=== PATIENT | male | born 1940 | race Caucasian/White ===

== ENCOUNTER 2021-03-28 16:02 | Inpatient (IN) | payer MEDICARE ==
[2021-03-28 16:50] LABS: #Eosinphils 0.1 thou/uL (0.0-0.7); #Lymphocytes 1.7 thou/uL (1.20-3.40); #Monocytes 0.7 thou/uL (0.11-0.59); #Neutrophils 3.6 thou/uL (1.40-6.50); %Basophils 0.7 % (0.0-1.0); %Lymphocytes 27.5 % (21.0-51.0); %Monocytes 11.8 % (0.0-10.0); Hemoglobin 12.4 g/dL (14.0-18.0); Mean Corpuscular HGB CONC 33.1 g/dL (32.0-36.0); Mean Corpuscular Hemoglobin 28.6 pg (27.0-31.0); Mean Corpuscular Volume 86.5 fL (78.0-98.0); Mean Platelet Volume 7.6 fL (7.4-10.4); Platelet Count 159 thou/uL (130-400); RBC Distribution Width 12.6 % (11.5-14.5); Red Blood Cell (RBC) Count 4.33 mill/uL (4.70-6.10); White Blood Cell (WBC) Count 6.2 thou/uL (4.8-10.8)
[2021-03-28 17:52] LABS: ALT (SGPT) 15 U/L (8-55); AST (SGOT) 19 U/L (5-34); Alkaline Phosphatase 78 U/L (40-110); Anion Gap 13 mmol/L (10-20); BUN (Urea Nitrogen) 14 mg/dL (8.4-25.7); Bilirubin, Total 0.4 mg/dL (0.2-1.2); Calc. Creatinine Clearance 0 mL/min (70-130); Calcium 9.4 mg/dL (7.8-10.44); Carbon Dioxide 28 mmol/L (23-31); Chloride 92 mmol/L (98-107); Globulin 3.1 g/dL (2.4-3.5); Glucose 66 mg/dL (83-110); Potassium 3.3 mmol/L (3.5-5.1); Protein, Total 7.1 g/dL (5.8-8.1); Sodium 130 mmol/L (136-145)
[2021-03-28 20:14] LABS: Troponin I 0.014 ng/mL (< 0.028)
[2021-03-28 20:52] LABS: SARS-CoV-2 NAA Rapid Test Not Detected (NotDetected)
[2021-03-28 23:16] LABS: Troponin I 0.015 ng/mL (< 0.028)
[2021-03-28] MEDS ORDERED: Acetaminophen 325 MG TAB ONE (23:33)
[2021-03-28] MEDS ORDERED: Potassium Chloride 20 MEQ in Lactated Ringer's 1,000 ML IV SCH (23:45)
[2021-03-28] MEDS ORDERED: Dextrose 50% Abboject 50 ML SYRINGE SLOW IVP PRN (23:51)
[2021-03-28] MEDS ORDERED: Dextrose 5% in Water 1,000 ML IV PRN (23:51)
[2021-03-28] MEDS ORDERED: Senokot S 8.6-50 MG TAB PO PRN (23:51)
[2021-03-28] MEDS ORDERED: HumaLOG 300 UNITS/3 ML VIAL SC PRN (23:51)
[2021-03-28] MEDS ORDERED: Zolpidem Tartrate 5 MG TAB PO PRN (23:51)
[2021-03-28] MEDS ORDERED: hydrALAZINE 20 MG/ML VIAL SLOW IVP PRN (23:51)
[2021-03-28] MEDS ORDERED: Acetaminophen 325 MG TAB PO PRN (23:51)
[2021-03-28] MEDS ORDERED: Ondansetron PF 4 MG/2 ML Vial IVP PRN (23:51)
[2021-03-29] MEDS ORDERED: Aspirin 81 mg Enteric Coated Tablet PO SCH (00:15)
[2021-03-29] MEDS: Potassium Chloride 20 MEQ in Lactated Ringer's 1,000 ML IVPB SCH ×2 (02:13→16:53)
[2021-03-29] MEDS ORDERED: Aspirin 81 mg Enteric Coated Tablet ONE (02:24)
[2021-03-29] MEDS ORDERED: Apixaban 5 MG TAB PO SCH (09:00)
[2021-03-29 10:09] VITALS: BMI 26.4
[2021-03-29] MEDS: Aspirin 81 mg Enteric Coated Tablet PO SCH (10:26)
[2021-03-29] MEDS: Famotidine 20 MG TAB PO SCH (10:27)
[2021-03-29] MEDS ORDERED: Electrolyte Replacement Protocol 1 EACH FS SCH (13:30)
[2021-03-29] MEDS ORDERED: Amlodipine 5 MG TAB PO SCH (15:15)
[2021-03-29 15:26] LABS: #Basophils 0.1 thou/uL (0.0-0.2); #Eosinphils 0.1 thou/uL (0.0-0.7); #Lymphocytes 1.7 thou/uL (1.20-3.40); #Monocytes 0.5 thou/uL (0.11-0.59); #Neutrophils 3.2 thou/uL (1.40-6.50); %Basophils 1.2 % (0.0-1.0); %Eosinophils 2.3 % (0.0-10.0); %Lymphocytes 29.5 % (21.0-51.0); %Monocytes 9.7 % (0.0-10.0); %Neutrophils 57.3 % (42.0-75.0); Hemoglobin 12.7 g/dL (14.0-18.0); Mean Corpuscular HGB CONC 32.8 g/dL (32.0-36.0); Mean Corpuscular Hemoglobin 28.2 pg (27.0-31.0); Mean Platelet Volume 7.3 fL (7.4-10.4); Platelet Count 157 thou/uL (130-400); RBC Distribution Width 12.7 % (11.5-14.5); Red Blood Cell (RBC) Count 4.48 mill/uL (4.70-6.10); White Blood Cell (WBC) Count 5.6 thou/uL (4.8-10.8)
[2021-03-29 15:44] LABS: Anion Gap 13 mmol/L (10-20); BUN (Urea Nitrogen) 14 mg/dL (8.4-25.7); Calc. Creatinine Clearance 52 mL/min (70-130); Calcium 9.5 mg/dL (7.8-10.44); Carbon Dioxide 29 mmol/L (23-31); Chloride 92 mmol/L (98-107); Cholesterol 126 mg/dl (< 200 Desired); Glucose 96 mg/dL (83-110); HDL Cholesterol 42 mg/dL (>60 Neg Risk); LDL Cholesterol, Calculated 67 mg/dL; Magnesium 1.7 mg/dL (1.6-2.6); Potassium 3.5 mmol/L (3.5-5.1); Sodium 130 mmol/L (136-145); Triglycerides 85 mg/dL (Less than 150)
[2021-03-29 15:56] LABS: Bacteria/HPF None Seen HPF (None Seen); Bilirubin Negative (Negative); Blood, Urine Negative (Negative); Clarity Clear (Clear); Glucose, Urine (Dipstick) Normal (Negative); Ketone, Urine Negative (Negative); Leukocyte Negative Leu/uL (Negative); Nitrite Negative (Negative); Protein, Urine (Dipstick) Negative (Neg-Trace); RBC/HPF 0-3 HPF (0-3); Specific Gravity, Urine 1.009 (1.002-1.036); Squamous Epithelial None Seen HPF (0-3); Urobilinogen Normal mg/dL (Less than 2); WBC/HPF 0-3 HPF (0-3); pH, Urine 5.5 (5.0-9.0)
[2021-03-29] MEDS ORDERED: Magnesium 2 GM/50 ML 2 GM in Premix Bag 1 BAG IVPB SCH (20:00)
[2021-03-29] MEDS ORDERED: Potassium Chloride 20 MEQ TAB PO SCH (20:00)
[2021-03-29] MEDS: Enoxaparin Sodium 80 MG/0.8 ML SYRINGE SC SCH (23:43)
[2021-03-29] MEDS: Atorvastatin Calcium 40 MG TAB PO SCH (23:43)
[2021-03-30 06:51] LABS: Albumin 3.7 g/dL (3.4-4.8); Anion Gap 13 mmol/L (10-20); BUN (Urea Nitrogen) 13 mg/dL (8.4-25.7); BUN/Creatinine Ratio 10.83; Calc. Creatinine Clearance 54 mL/min (70-130); Carbon Dioxide 28 mmol/L (23-31); Chloride 96 mmol/L (98-107); Glucose 99 mg/dL (83-110); Phosphorus 3.1 mg/dL (2.3-4.7); Potassium 3.9 mmol/L (3.5-5.1); Sodium 133 mmol/L (136-145)
[2021-03-30] MEDS: Potassium Chloride 20 MEQ in Lactated Ringer's 1,000 ML IVPB SCH (09:42)
[2021-03-30] MEDS: Enoxaparin Sodium 80 MG/0.8 ML SYRINGE SC SCH ×2 (10:12→21:40)
[2021-03-30] MEDS: Amlodipine 5 MG TAB PO SCH (10:13)
[2021-03-30] MEDS: Famotidine 20 MG TAB PO SCH (10:13)
[2021-03-30] MEDS: Aspirin 81 mg Enteric Coated Tablet PO SCH (10:13)
[2021-03-30 13:18] LABS: Bacteria/HPF None Seen HPF (None Seen); Bilirubin Negative (Negative); Blood, Urine Negative (Negative); Clarity Clear (Clear); Glucose, Urine (Dipstick) Normal (Negative); Ketone, Urine Negative (Negative); Leukocyte Negative Leu/uL (Negative); Nitrite Negative (Negative); Protein, Urine (Dipstick) Negative (Neg-Trace); RBC/HPF 0-3 HPF (0-3); Specific Gravity, Urine 1.013 (1.002-1.036); Squamous Epithelial None Seen HPF (0-3); Urobilinogen Normal mg/dL (Less than 2); WBC/HPF None Seen HPF (0-3); pH, Urine 7.5 (5.0-9.0)
[2021-03-30 13:19] LABS: Urine Culture Reflex No No
[2021-03-30 13:50] LABS: Creatinine, Urine 82.54 mg/dL (63-166); Protein, Urine Random Quant Less than 10 mg/dL (1-14); Sodium, Urine 47 mmol/L (Not Available); Urea Nitrogen, Random Urine 429 mg/dl
[2021-03-30] MEDS: Dronedarone HCl 400 MG TAB PO SCH (15:47)
[2021-03-30 15:48] LABS: Syphilis Antibody Nonreactive (Nonreactive); Syphilis Antibody Index 0.08 S/CO (<1.00 Non-Reactive)
[2021-03-30] MEDS: Atorvastatin Calcium 40 MG TAB PO SCH (21:40)
[2021-03-30] MEDS: Doxazosin Mesylate 4 MG TAB PO SCH (21:40)
[2021-03-31 07:51] LABS: Anion Gap 13 mmol/L (10-20); BUN (Urea Nitrogen) 14 mg/dL (8.4-25.7); Calc. Creatinine Clearance 47 mL/min (70-130); Calcium 9.1 mg/dL (7.8-10.44); Carbon Dioxide 28 mmol/L (23-31); Chloride 96 mmol/L (98-107); Glucose 103 mg/dL (83-110); Potassium 3.9 mmol/L (3.5-5.1); Sodium 133 mmol/L (136-145)
[2021-03-31] MEDS ORDERED: Clopidogrel Bisulfate 75 MG TAB PO SCH (09:00)
[2021-03-31] MEDS: Dronedarone HCl 400 MG TAB PO SCH ×2 (09:59→17:08)
[2021-03-31] MEDS: Amlodipine 5 MG TAB PO SCH (10:00)
[2021-03-31] MEDS: Aspirin 81 mg Enteric Coated Tablet PO SCH (10:00)
[2021-03-31] MEDS: Famotidine 20 MG TAB PO SCH (10:00)
[2021-03-31] MEDS: Enoxaparin Sodium 80 MG/0.8 ML SYRINGE SC SCH (10:00)
[2021-03-31 14:39] LABS: ANA Symphony (Qualitative) Negative (Negative); ANA Symphony (Quantitative) 0.2 Ratio (< 0.7 Negative); dsDNA IgG Antibody 1.1 IU/mL (<10 Negative)
[2021-03-31] MEDS: Doxazosin Mesylate 4 MG TAB PO SCH (20:55)
[2021-03-31] MEDS: Atorvastatin Calcium 40 MG TAB PO SCH (20:55)
[2021-04-01] MEDS ORDERED: ceFAZolin 2 GM/Dextrose 50 ML 2 GM in Premix Bag 1 BAG IVPB SCH (05:45)
[2021-04-01] MEDS ORDERED: Sodium Chloride 0.9% 1,000 ML IV SCH (06:00)
[2021-04-01 07:31] LABS: Anion Gap 16 mmol/L (10-20); BUN (Urea Nitrogen) 14 mg/dL (8.4-25.7); Calc. Creatinine Clearance 51 mL/min (70-130); Carbon Dioxide 24 mmol/L (23-31); Chloride 97 mmol/L (98-107); Glucose 105 mg/dL (83-110); Magnesium 1.8 mg/dL (1.6-2.6); Potassium 3.7 mmol/L (3.5-5.1); Sodium 133 mmol/L (136-145)
[2021-04-01] MEDS ORDERED: Magnesium 2 GM/50 ML 2 GM in Premix Bag 1 BAG IVPB SCH (08:00)
[2021-04-01] MEDS ORDERED: ceFAZolin 2 GM/DEX 5% 100 ML BAG ONE (08:06)
[2021-04-01] MEDS ORDERED: CEFAZOLIN 1 GM VIAL ONE (08:06)
[2021-04-01] MEDS ORDERED: Gentamicin 80 MG/2 ML VIAL ONE (08:06)
[2021-04-01] MEDS: Dronedarone HCl 400 MG TAB PO SCH ×2 (08:20→16:02)
[2021-04-01] MEDS: Famotidine 20 MG TAB PO SCH (08:22)
[2021-04-01] MEDS: Aspirin 81 mg Enteric Coated Tablet PO SCH (08:22)
[2021-04-01] MEDS ORDERED: Midazolam HCl 2 mg/2 ml Vial ONE (09:16)
[2021-04-01] MEDS ORDERED: Fentanyl 100 MCG/2 ML VIAL ONE (09:16)
[2021-04-01] MEDS ORDERED: Lidocaine 1% (PF) 30 ML VIAL ONE ×2 (09:19→10:17)
[2021-04-01] MEDS ORDERED: Iopamidol 370 76% 50 ML VIAL FS ONE (09:25)
[2021-04-01] MEDS ORDERED: Acetaminophen/Codeine 30-300mg Tablet PO PRN (11:15)
[2021-04-01] MEDS: Acetaminophen/Codeine 30-300mg Tablet PO PRN ×2 (16:02→20:52)
[2021-04-01] MEDS: Cephalexin 250 MG CAP PO SCH ×2 (16:08→20:49)
[2021-04-01] MEDS: Mag-Al 1200 mg/1200 mg/30 ML UDCUP PO PRN (16:14)
[2021-04-01] MEDS: Morphine 4 MG/ML VIAL SLOW IVP PRN ×2 (17:40→22:58)
[2021-04-01] MEDS ORDERED: Colchicine 0.6 MG TAB PO SCH (18:30)
[2021-04-01] MEDS: Atorvastatin Calcium 40 MG TAB PO SCH (20:50)
[2021-04-01] MEDS: Doxazosin Mesylate 4 MG TAB PO SCH (20:54)
[2021-04-02] MEDS: Morphine 4 MG/ML VIAL SLOW IVP PRN ×3 (03:05→16:46)
[2021-04-02] MEDS: Cephalexin 250 MG CAP PO SCH ×3 (08:54→20:27)
[2021-04-02] MEDS: Aspirin 81 mg Enteric Coated Tablet PO SCH (08:54)
[2021-04-02] MEDS: Famotidine 20 MG TAB PO SCH (08:54)
[2021-04-02] MEDS: Colchicine 0.6 MG TAB PO SCH ×2 (08:54→20:27)
[2021-04-02] MEDS: Dronedarone HCl 400 MG TAB PO SCH ×2 (08:54→16:42)
[2021-04-02] MEDS: Mag-Al 1200 mg/1200 mg/30 ML UDCUP PO PRN (09:12)
[2021-04-02] MEDS: HYDROcodone/Acetaminophen 7.5/325 mg Tablet PO PRN (09:12)
[2021-04-02] MEDS ORDERED: Polyethylene Glycol 3350 17 GM Packet PO SCH (11:45)
[2021-04-02] MEDS ORDERED: Senokot S 8.6-50 MG TAB PO SCH (11:45)
[2021-04-02] MEDS: Senokot S 8.6-50 MG TAB PO SCH (20:27)
[2021-04-02] MEDS: Doxazosin Mesylate 4 MG TAB PO SCH (20:27)
[2021-04-02] MEDS: Atorvastatin Calcium 40 MG TAB PO SCH (20:27)
[2021-04-02] MEDS ORDERED: Bisacodyl 10 MG SUPP PR SCH (21:00)
[2021-04-03] MEDS: Morphine 4 MG/ML VIAL SLOW IVP PRN (01:36)
[2021-04-03] MEDS: HYDROcodone/Acetaminophen 7.5/325 mg Tablet PO PRN (05:11)
[2021-04-03] MEDS: Dronedarone HCl 400 MG TAB PO SCH ×2 (08:35→16:08)
[2021-04-03] MEDS: Aspirin 81 mg Enteric Coated Tablet PO SCH (08:35)
[2021-04-03] MEDS: Cephalexin 250 MG CAP PO SCH ×2 (08:35→16:08)
[2021-04-03] MEDS: Colchicine 0.6 MG TAB PO SCH (08:35)
[2021-04-03] MEDS: Famotidine 20 MG TAB PO SCH (08:35)
[2021-04-03] MEDS: Senokot S 8.6-50 MG TAB PO SCH (08:36)
[2021-04-03] MEDS ORDERED: Polyethylene Glycol 3350 17 GM Packet PO SCH (09:00)
[2021-04-03] MEDS ORDERED: Benzonatate 100 MG CAP PO PRN (13:07)
[2021-04-03] MEDS ORDERED: Hydrocortisone 1% Cream 30 GM TUBE TOP SCH (15:00)
[2021-04-03] MEDS ORDERED: Furosemide 40 MG TAB PO SCH (16:00)
[2021-04-03] MEDS: Potassium Chloride 20 MEQ TAB PO SCH ×2 (16:07→16:26)
[2021-04-03] MEDS ORDERED: Furosemide 20 MG/2 ML VIAL SLOW IVP SCH (16:15)
[2021-04-03 16:19] VITALS: BP 120/73; TEMP 99.2
[2021-04-03] MEDS ORDERED: Colchicine 0.6 MG TAB PO SCH (18:00)
[2021-04-03] MEDS ORDERED: Cephalexin 250 MG CAP PO SCH (18:00)
[2021-04-03] MEDS ORDERED: guaiFENesin ER 600 MG TAB PO SCH (21:00)
[2021-04-04] MEDS ORDERED: Senokot S 8.6-50 MG TAB PO SCH (09:00)
[2021-04-05] MEDS ORDERED: Apixaban 5 MG TAB PO SCH (09:00)
== END 2021-04-03 18:25 | disposition home or self-care (01) | DRG 243 ==
LOC: ERS 16:02 → ERHOLD 18:18 → NEURO 03-29 09:13 → OBSVTOIN 03-30 17:13
PROVIDERS: ADMIT Internal Medicine; ATTEND Internal Medicine
PROC: 0JH606Z Insertion of Pacemaker, Dual Chamber into Chest Subcutaneous Tissue and Fascia, Open Approach (ICD-10-PCS; principal; 2021-04-01)
PROC: 02H63JZ Insertion of Pacemaker Lead into Right Atrium, Percutaneous Approach (ICD-10-PCS; 2021-04-01)
PROC: 02HK3JZ Insertion of Pacemaker Lead into Right Ventricle, Percutaneous Approach (ICD-10-PCS; 2021-04-01)
DX: R00.1 Bradycardia, unspecified (principal); Z20.822 Contact with and (suspected) exposure to COVID-19; G45.9 Transient cerebral ischemic attack, unspecified; E87.1 Hypo-osmolality and hyponatremia; N17.9 Acute kidney failure, unspecified; E87.3 Alkalosis; I12.9 Hypertensive chronic kidney disease with stage 1 through stage 4 chronic kidney disease, or unspecified chronic kidney disease; E78.5 Hyperlipidemia, unspecified; I48.0 Paroxysmal atrial fibrillation; N18.30 Chronic kidney disease, stage 3 unspecified; E87.6 Hypokalemia; E11.22 Type 2 diabetes mellitus with diabetic chronic kidney disease; M10.9 Gout, unspecified; N40.0 Benign prostatic hyperplasia without lower urinary tract symptoms; I08.3 Combined rheumatic disorders of mitral, aortic and tricuspid valves; E87.8 Other disorders of electrolyte and fluid balance, not elsewhere classified; E78.00 Pure hypercholesterolemia, unspecified; T50.2X5A Adverse effect of carbonic-anhydrase inhibitors, benzothiadiazides and other diuretics, initial encounter; E86.9 Volume depletion, unspecified; E83.42 Hypomagnesemia; E11.649 Type 2 diabetes mellitus with hypoglycemia without coma; Z79.01 Long term (current) use of anticoagulants; Z82.3 Family history of stroke; Z79.899 Other long term (current) drug therapy; Z79.84 Long term (current) use of oral hypoglycemic drugs; Z79.82 Long term (current) use of aspirin; Z88.8 Allergy status to other drugs, medicaments and biological substances; Z87.891 Personal history of nicotine dependence; Z98.42 Cataract extraction status, left eye; Z98.41 Cataract extraction status, right eye
CPT/HCPCS: 33208; 36415; 36416; 70450; 70551; 71045; 71046; 76770; 80048; 80053; 80061; 80069; 81001; 82570; 83090; 83735; 83880; 84156; 84300; 84443; 84484; 84540; 85025; 86038; 86225; 86780; 93005; 93010; 93306; 93798; 93880; 95816; 95819; 95957; 96372; 96375; 99152; 99153; C1785; C1898; G0378; J0690; J1580; J1650; J1815; J2001; J2250; J2270; J2405; J3010; J3475; J3480; J7050; J7120; Q9967; U0002

== ENCOUNTER 2021-04-04 03:10 | Inpatient (IN) | payer MEDICARE, OTHER ==
[2021-04-04] MEDS ORDERED: Ondansetron ODT 8 MG TAB ONE (04:32)
[2021-04-04 04:49] LABS: Bilirubin Negative (Negative); Blood, Urine Negative (Negative); Clarity Clear (Clear); Glucose, Urine (Dipstick) Negative (Negative); Ketone, Urine Trace mg/dL (Negative); Leukocyte Negative (Negative); Nitrite Negative (Negative); Protein, Urine (Dipstick) 30 mg/dL (Neg-Trace); Specific Gravity, Urine 1.025 (1.005-1.030); Urobilinogen 0.2 mg/dL (Less than 2); pH, Urine 5.5 (5.0-9.0)
[2021-04-04 05:08] LABS: #Eosinphils 0.1 thou/uL (0.0-0.7); #Lymphocytes 0.7 thou/uL (1.20-3.40); #Monocytes 1.1 thou/uL (0.11-0.59); #Neutrophils 5.6 thou/uL (1.40-6.50); %Basophils 0.4 % (0.0-1.0); %Eosinophils 1.3 % (0.0-10.0); %Lymphocytes 9.6 % (21.0-51.0); %Monocytes 14.3 % (0.0-10.0); %Neutrophils 74.4 % (42.0-75.0); Hemoglobin 9.8 g/dL (14.0-18.0); Mean Corpuscular HGB CONC 32.8 g/dL (32.0-36.0); Mean Corpuscular Hemoglobin 28.6 pg (27.0-31.0); Mean Corpuscular Volume 87.2 fL (78.0-98.0); Mean Platelet Volume 8.1 fL (7.4-10.4); Platelet Count 122 thou/uL (130-400); RBC Distribution Width 12.7 % (11.5-14.5); Red Blood Cell (RBC) Count 3.41 mill/uL (4.70-6.10); White Blood Cell (WBC) Count 7.5 thou/uL (4.8-10.8)
[2021-04-04] MEDS ORDERED: Mag-Al 1200 mg/1200 mg/30 ML UDCUP ONE (05:08)
[2021-04-04] MEDS ORDERED: Lidocaine Viscous Sol 2% 15 ml UD Cup ONE (05:08)
[2021-04-04 05:29] LABS: ALT (SGPT) 89 U/L (8-55); AST (SGOT) 86 U/L (5-34); Albumin 3.7 g/dL (3.4-4.8); Alkaline Phosphatase 104 U/L (40-110); Anion Gap 14 mmol/L (10-20); BUN (Urea Nitrogen) 22 mg/dL (8.4-25.7); Bilirubin, Total 1.4 mg/dL (0.2-1.2); Calc. Creatinine Clearance 0 mL/min (70-130); Calcium 8.3 mg/dL (7.8-10.44); Carbon Dioxide 25 mmol/L (23-31); Chloride 88 mmol/L (98-107); Globulin 3.1 g/dL (2.4-3.5); Glucose 135 mg/dL (83-110); Lipase 49 U/L (8-78); Magnesium 2.2 mg/dL (1.6-2.6); Protein, Total 6.8 g/dL (5.8-8.1); Sodium 123 mmol/L (136-145)
[2021-04-04] MEDS ORDERED: HumaLOG 300 UNITS/3 ML VIAL SC PRN ×2 (09:50)
[2021-04-04] MEDS ORDERED: Dextrose 5% in Water 1,000 ML IV PRN (09:50)
[2021-04-04] MEDS ORDERED: Dextrose 50% Abboject 50 ML SYRINGE SLOW IVP PRN (09:50)
[2021-04-04] MEDS ORDERED: Acetaminophen 650 MG Suppository PR PRN (09:51)
[2021-04-04] MEDS ORDERED: Ondansetron ODT 4 MG TAB PO PRN (09:51)
[2021-04-04] MEDS ORDERED: Sodium Chloride 3% 100 ML IVPB SCH (10:30)
[2021-04-04 11:24] LABS: Anion Gap 15 mmol/L (10-20); BUN (Urea Nitrogen) 20 mg/dL (8.4-25.7); Calc. Creatinine Clearance 0 mL/min (70-130); Calcium 8.1 mg/dL (7.8-10.44); Carbon Dioxide 24 mmol/L (23-31); Chloride 90 mmol/L (98-107); Glucose 104 mg/dL (83-110); Phosphorus 2.5 mg/dL (2.3-4.7); Sodium 125 mmol/L (136-145)
[2021-04-04 15:05] LABS: Potassium 4.1 mmol/L (3.5-5.1)
[2021-04-04] MEDS: Dronedarone HCl 400 MG TAB PO SCH (17:26)
[2021-04-04] MEDS: Cephalexin 250 MG CAP PO SCH ×2 (17:26→20:09)
[2021-04-04 18:14] LABS: Potassium 4.1 mmol/L (3.5-5.1)
[2021-04-04] MEDS: Sodium Chloride 1 GM TAB PO SCH ×2 (19:21→20:10)
[2021-04-04 20:08] VITALS: BMI 27.2
[2021-04-04] MEDS: Saccharomyces boulardii 250 MG CAP PO SCH (20:09)
[2021-04-04] MEDS: Atorvastatin Calcium 10 MG TAB PO SCH (20:09)
[2021-04-04 22:16] LABS: Potassium 3.7 mmol/L (3.5-5.1)
[2021-04-04] MEDS: Acetaminophen 325 MG TAB PO PRN (22:36)
[2021-04-05 00:05] LABS: SARS-CoV-2 PCR by NAA Not Detected (NotDetected)
[2021-04-05 06:14] LABS: Anion Gap 12 mmol/L (10-20); BUN (Urea Nitrogen) 14 mg/dL (8.4-25.7); Calc. Creatinine Clearance 60 mL/min (70-130); Calcium 8.5 mg/dL (7.8-10.44); Carbon Dioxide 27 mmol/L (23-31); Chloride 94 mmol/L (98-107); Glucose 89 mg/dL (83-110); Magnesium 2.2 mg/dL (1.6-2.6); Potassium 3.8 mmol/L (3.5-5.1); Sodium 129 mmol/L (136-145)
[2021-04-05 06:14] LABS: Band 2 % (5-11); Hemoglobin 9.7 g/dL (14.0-18.0); Lymphocytes 14 % (21-51); MDiff Complete? YES; Mean Corpuscular HGB CONC 34.2 g/dL (32.0-36.0); Mean Corpuscular Hemoglobin 29.7 pg (27.0-31.0); Mean Corpuscular Volume 86.9 fL (78.0-98.0); Mean Platelet Volume 7.3 fL (7.4-10.4); Monocytes 11 % (0-10); Neutrophil 73 % (42-75); Platelet Count 145 thou/uL (130-400); Platelet Morphology Comment Appears Adequate; RBC Distribution Width 12.5 % (11.5-14.5); RBC Morphology Normal; Red Blood Cell (RBC) Count 3.26 mill/uL (4.70-6.10); White Blood Cell (WBC) Count 7.1 thou/uL (4.8-10.8)
[2021-04-05 06:15] LABS: ALT (SGPT) 60 U/L (8-55); AST (SGOT) 45 U/L (5-34); Albumin 3.3 g/dL (3.4-4.8); Alkaline Phosphatase 98 U/L (40-110); Bilirubin, Direct 0.6 mg/dL (0.1-0.3); Bilirubin, Total 1.1 mg/dL (0.2-1.2); Protein, Total 6.2 g/dL (5.8-8.1)
[2021-04-05] MEDS ORDERED: Saccharomyces boulardii 250 MG CAP PO SCH (09:00)
[2021-04-05] MEDS ORDERED: Metoprolol Tartrate 100 MG TAB PO SCH (09:00)
[2021-04-05] MEDS: Dronedarone HCl 400 MG TAB PO SCH ×2 (09:29→17:03)
[2021-04-05] MEDS: Aspirin Chewable 81 MG TAB PO SCH (09:29)
[2021-04-05] MEDS: Cephalexin 250 MG CAP PO SCH ×3 (09:29→20:36)
[2021-04-05] MEDS: Sodium Chloride 1 GM TAB PO SCH ×3 (09:36→20:36)
[2021-04-05] MEDS ORDERED: Lisinopril 20 MG TAB PO SCH (11:00)
[2021-04-05] MEDS: Acetaminophen 325 MG TAB PO PRN ×2 (15:10→22:27)
[2021-04-05] MEDS ORDERED: Digoxin 0.5 MG/2 ML AMP SLOW IVP SCH ×2 (18:00→23:59)
[2021-04-05] MEDS: Saccharomyces boulardii 250 MG CAP PO SCH (20:36)
[2021-04-05] MEDS: Atorvastatin Calcium 10 MG TAB PO SCH (20:37)
[2021-04-06 04:57] LABS: Band 1 % (5-11); Hemoglobin 9.6 g/dL (14.0-18.0); Hypochromia SLIGHT = 6-15 cells (100X) (0-5/hpf); Lymphocytes 25 % (21-51); MDiff Complete? YES; Mean Corpuscular HGB CONC 32.9 g/dL (32.0-36.0); Mean Corpuscular Hemoglobin 28.4 pg (27.0-31.0); Mean Corpuscular Volume 86.5 fL (78.0-98.0); Monocytes 6 % (0-10); Neutrophil 68 % (42-75); Platelet Count 175 thou/uL (130-400); Platelet Morphology Comment Appears Adequate; RBC Distribution Width 12.6 % (11.5-14.5); Red Blood Cell (RBC) Count 3.36 mill/uL (4.70-6.10); White Blood Cell (WBC) Count 6.2 thou/uL (4.8-10.8)
[2021-04-06 04:58] LABS: Anion Gap 13 mmol/L (10-20); BUN (Urea Nitrogen) 15 mg/dL (8.4-25.7); Calc. Creatinine Clearance 61 mL/min (70-130); Calcium 8.4 mg/dL (7.8-10.44); Carbon Dioxide 25 mmol/L (23-31); Chloride 95 mmol/L (98-107); Glucose 99 mg/dL (83-110); Potassium 3.8 mmol/L (3.5-5.1); Sodium 129 mmol/L (136-145)
[2021-04-06] MEDS: Cephalexin 250 MG CAP PO SCH ×2 (08:44→14:39)
[2021-04-06] MEDS: Aspirin Chewable 81 MG TAB PO SCH (08:44)
[2021-04-06] MEDS: Sodium Chloride 1 GM TAB PO SCH ×2 (08:57→14:38)
[2021-04-06] MEDS ORDERED: Digoxin 0.125 MG TAB PO SCH (09:00)
[2021-04-06] MEDS ORDERED: Lisinopril 20 MG TAB PO SCH (09:00)
[2021-04-06] MEDS: Acetaminophen 325 MG TAB PO PRN (11:27)
[2021-04-06 11:48] VITALS: BP 144/78; TEMP 100.2
== END 2021-04-06 15:04 | disposition home or self-care (01) | DRG 643 ==
LOC: ERS 03:10 → OBSVTOIN 06:29 → ERHOLD 06:29 → 2NO 17:06
PROVIDERS: ADMIT Internal Medicine; ATTEND Internal Medicine
DX: E22.2 Syndrome of inappropriate secretion of antidiuretic hormone (principal); G93.41 Metabolic encephalopathy; K52.1 Toxic gastroenteritis and colitis; I31.3 Pericardial effusion (noninflammatory); N17.9 Acute kidney failure, unspecified; I31.2 Hemopericardium, not elsewhere classified; Z20.822 Contact with and (suspected) exposure to COVID-19; I48.91 Unspecified atrial fibrillation; T47.4X5A Adverse effect of other laxatives, initial encounter; E11.22 Type 2 diabetes mellitus with diabetic chronic kidney disease; E78.5 Hyperlipidemia, unspecified; I12.9 Hypertensive chronic kidney disease with stage 1 through stage 4 chronic kidney disease, or unspecified chronic kidney disease; M10.9 Gout, unspecified; D63.1 Anemia in chronic kidney disease; N40.0 Benign prostatic hyperplasia without lower urinary tract symptoms; E86.9 Volume depletion, unspecified; E87.6 Hypokalemia; I08.3 Combined rheumatic disorders of mitral, aortic and tricuspid valves; N18.30 Chronic kidney disease, stage 3 unspecified; K76.89 Other specified diseases of liver; E78.00 Pure hypercholesterolemia, unspecified; Z88.8 Allergy status to other drugs, medicaments and biological substances; Z95.0 Presence of cardiac pacemaker; Z79.01 Long term (current) use of anticoagulants; Z86.73 Personal history of transient ischemic attack (TIA), and cerebral infarction without residual deficits; Z79.899 Other long term (current) drug therapy; Z79.82 Long term (current) use of aspirin; Z79.84 Long term (current) use of oral hypoglycemic drugs; Z82.3 Family history of stroke; Z87.891 Personal history of nicotine dependence
CPT/HCPCS: 36415; 36416; 71045; 74176; 76705; 80048; 80053; 80076; 81003; 81015; 83690; 83735; 83930; 83935; 84100; 84300; 85025; 87324; 87449; 93005; 93306; J1160; J7131; Q0162; U0003; U0005

== ENCOUNTER 2021-04-20 13:23 | Inpatient (IN) | payer OTHER ==
[2021-04-20] MEDS ORDERED: Nitroglycerin 0.4 MG TAB (25 Tab Bottle) SL PRN (13:56)
[2021-04-20] MEDS ORDERED: Zolpidem Tartrate 5 MG TAB PO PRN (13:57)
[2021-04-20] MEDS ORDERED: Acetaminophen 325 MG TAB PO PRN (13:57)
[2021-04-20] MEDS ORDERED: Milk Of Magnesia 30 ML UDCUP PO PRN (13:58)
[2021-04-20 14:09] VITALS: BMI 26.2
[2021-04-20] MEDS: Atorvastatin Calcium 10 MG TAB PO SCH (15:54)
[2021-04-20] MEDS: Sodium Chloride 1 GM TAB PO SCH ×2 (15:54→21:59)
[2021-04-20] MEDS: Docusate 100 MG CAP PO SCH (21:56)
[2021-04-20] MEDS: Latanoprost 0.005% Ophth Soln 2.5 ml Bottle EA EYE SCH (21:56)
[2021-04-21 06:20] LABS: #Eosinphils 0.1 thou/uL (0.0-0.7); #Lymphocytes 1.1 thou/uL (1.20-3.40); #Monocytes 0.8 thou/uL (0.11-0.59); #Neutrophils 3.2 thou/uL (1.40-6.50); %Basophils 0.2 % (0.0-1.0); %Eosinophils 1.3 % (0.0-10.0); %Lymphocytes 21.7 % (21.0-51.0); %Monocytes 14.6 % (0.0-10.0); %Neutrophils 62.2 % (42.0-75.0); Anion Gap 13 mmol/L (10-20); BUN (Urea Nitrogen) 10 mg/dL (8.4-25.7); Calc. Creatinine Clearance 73 mL/min (70-130); Calcium 8.5 mg/dL (7.8-10.44); Carbon Dioxide 25 mmol/L (23-31); Chloride 97 mmol/L (98-107); Digoxin 0.59 ng/mL (0.8-2.0); Glucose 101 mg/dL (83-110); Hemoglobin 9.5 g/dL (14.0-18.0); Mean Corpuscular HGB CONC 32.7 g/dL (32.0-36.0); Mean Corpuscular Hemoglobin 27.2 pg (27.0-31.0); Mean Corpuscular Volume 83.4 fL (78.0-98.0); Mean Platelet Volume 6.7 fL (7.4-10.4); Platelet Count 293 thou/uL (130-400); RBC Distribution Width 13.5 % (11.5-14.5); Sodium 132 mmol/L (136-145); White Blood Cell (WBC) Count 5.1 thou/uL (4.8-10.8)
[2021-04-21] MEDS ORDERED: Lidocaine 1% MPF 2 ML VIAL ONE (09:36)
[2021-04-21] MEDS ORDERED: Fentanyl 100 MCG/2 ML VIAL ONE (10:04)
[2021-04-21] MEDS ORDERED: EPINEPHrine 1 MG/ML AMP ONE (10:05)
[2021-04-21] MEDS ORDERED: Bupivacaine PF 0.5% 30 ML VIAL ONE (10:05)
[2021-04-21] MEDS ORDERED: ceFAZolin 2 GM/Dextrose 50 ML IVPB ONE (10:10)
[2021-04-21] MEDS ORDERED: Lidocaine 1% PF 5 ML VIAL ONE (10:26)
[2021-04-21] MEDS ORDERED: PROPOFOL 200 MG/20 ML VIAL ONE (10:26)
[2021-04-21] MEDS ORDERED: Ondansetron PF 4 MG/2 ML Vial ONE (10:26)
[2021-04-21] MEDS ORDERED: Rocuronium Bromide 10 MG/ML (10ML VIAL) ONE (10:26)
[2021-04-21] MEDS ORDERED: Succinylcholine 200 MG/10 ml SYRINGE FS ONE (10:26)
[2021-04-21] MEDS ORDERED: Dexamethasone 20 MG/5 ML VIAL ONE (10:26)
[2021-04-21] MEDS ORDERED: Glycopyrrolate 0.2 MG/ML 5 ML SYRINGE ONE (10:26)
[2021-04-21] MEDS ORDERED: traMADol HCl 50 MG TAB PO PRN (12:56)
[2021-04-21] MEDS: Sodium Chloride 1 GM TAB PO SCH ×3 (13:20→21:00)
[2021-04-21] MEDS: Allopurinol 300 MG TAB PO SCH (13:29)
[2021-04-21] MEDS: Digoxin 0.125 MG TAB PO SCH (13:33)
[2021-04-21] MEDS: Aspirin Chewable 81 MG TAB PO SCH (13:33)
[2021-04-21] MEDS: Docusate 100 MG CAP PO SCH ×2 (13:34→20:59)
[2021-04-21] MEDS: Doxazosin Mesylate 4 MG TAB PO SCH (13:34)
[2021-04-21] MEDS: HYDROcodone/Acetaminophen 5/325 mg Tablet PO PRN (16:26)
[2021-04-21] MEDS: Atorvastatin Calcium 10 MG TAB PO SCH (16:27)
[2021-04-21] MEDS: Ketorolac Tromethamine 30 MG/ML VIAL IVP SCH (18:47)
[2021-04-21] MEDS: Latanoprost 0.005% Ophth Soln 2.5 ml Bottle EA EYE SCH (20:59)
[2021-04-22] MEDS: Ketorolac Tromethamine 30 MG/ML VIAL IVP SCH ×2 (04:26→05:49)
[2021-04-22] MEDS ORDERED: metFORMIN 500 MG TAB PO SCH (08:30)
[2021-04-22] MEDS: Allopurinol 300 MG TAB PO SCH (08:59)
[2021-04-22] MEDS: Docusate 100 MG CAP PO SCH ×2 (09:00→20:01)
[2021-04-22] MEDS: Sodium Chloride 1 GM TAB PO SCH ×3 (09:00→20:02)
[2021-04-22] MEDS: Digoxin 0.125 MG TAB PO SCH (09:00)
[2021-04-22] MEDS: Doxazosin Mesylate 4 MG TAB PO SCH (09:01)
[2021-04-22] MEDS: Aspirin Chewable 81 MG TAB PO SCH (09:01)
[2021-04-22] MEDS ORDERED: Potassium Chloride 20 MEQ TAB PO SCH (09:30)
[2021-04-22] MEDS ORDERED: Iopamidol 370 76% 100 ML VIAL ONE (09:42)
[2021-04-22 10:14] LABS: #Monocytes 0.7 thou/uL (0.11-0.59); #Neutrophils 7.7 thou/uL (1.40-6.50); %Basophils 0.1 % (0.0-1.0); %Eosinophils 0.3 % (0.0-10.0); %Lymphocytes 10.5 % (21.0-51.0); %Monocytes 7.5 % (0.0-10.0); %Neutrophils 81.6 % (42.0-75.0); Hemoglobin 9.7 g/dL (14.0-18.0); Mean Corpuscular HGB CONC 32.4 g/dL (32.0-36.0); Mean Corpuscular Hemoglobin 26.9 pg (27.0-31.0); Mean Corpuscular Volume 82.9 fL (78.0-98.0); Mean Platelet Volume 7.1 fL (7.4-10.4); Platelet Count 280 thou/uL (130-400); RBC Distribution Width 13.8 % (11.5-14.5); White Blood Cell (WBC) Count 9.5 thou/uL (4.8-10.8)
[2021-04-22 10:31] LABS: Anion Gap 15 mmol/L (10-20); BUN (Urea Nitrogen) 18 mg/dL (8.4-25.7); Calc. Creatinine Clearance 52 mL/min (70-130); Carbon Dioxide 20 mmol/L (23-31); Chloride 97 mmol/L (98-107); Glucose 134 mg/dL (83-110); Potassium 3.6 mmol/L (3.5-5.1); Sodium 128 mmol/L (136-145)
[2021-04-22 11:15] LABS: SARS-CoV-2 PCR by NAA Not Detected (NotDetected)
[2021-04-22] MEDS: Atorvastatin Calcium 10 MG TAB PO SCH (15:40)
[2021-04-22] MEDS: Latanoprost 0.005% Ophth Soln 2.5 ml Bottle EA EYE SCH (20:01)
[2021-04-23] MEDS: HYDROcodone/Acetaminophen 5/325 mg Tablet PO PRN ×3 (01:13→09:25)
[2021-04-23 03:47] VITALS: BP 157/75; TEMP 97.8
[2021-04-23 05:03] LABS: Anion Gap 12 mmol/L (10-20); BUN (Urea Nitrogen) 18 mg/dL (8.4-25.7); Calc. Creatinine Clearance 54 mL/min (70-130); Calcium 8.6 mg/dL (7.8-10.44); Carbon Dioxide 28 mmol/L (23-31); Chloride 100 mmol/L (98-107); Glucose 95 mg/dL (83-110); Potassium 3.7 mmol/L (3.5-5.1); Sodium 136 mmol/L (136-145)
[2021-04-23 06:38] LABS: #Eosinphils 0.1 thou/uL (0.0-0.7); #Lymphocytes 1.4 thou/uL (1.20-3.40); #Monocytes 0.7 thou/uL (0.11-0.59); #Neutrophils 5.1 thou/uL (1.40-6.50); %Basophils 0.4 % (0.0-1.0); %Eosinophils 1.7 % (0.0-10.0); %Lymphocytes 19.3 % (21.0-51.0); %Monocytes 8.8 % (0.0-10.0); %Neutrophils 69.7 % (42.0-75.0); Hemoglobin 9.5 g/dL (14.0-18.0); Mean Corpuscular HGB CONC 31.4 g/dL (32.0-36.0); Mean Corpuscular Hemoglobin 27.2 pg (27.0-31.0); Mean Corpuscular Volume 86.6 fL (78.0-98.0); Mean Platelet Volume 6.9 fL (7.4-10.4); Platelet Count 310 thou/uL (130-400); RBC Distribution Width 13.7 % (11.5-14.5); White Blood Cell (WBC) Count 7.5 thou/uL (4.8-10.8)
[2021-04-23] MEDS ORDERED: metFORMIN 500 MG TAB PO SCH (08:00)
[2021-04-23] MEDS ORDERED: cloNIDine 0.1 MG TAB PO PRN (08:47)
[2021-04-23] MEDS: Aspirin Chewable 81 MG TAB PO SCH (09:24)
[2021-04-23] MEDS: Allopurinol 300 MG TAB PO SCH (09:24)
[2021-04-23] MEDS: Docusate 100 MG CAP PO SCH (09:24)
[2021-04-23] MEDS: Sodium Chloride 1 GM TAB PO SCH (09:26)
[2021-04-23] MEDS: Digoxin 0.125 MG TAB PO SCH (09:26)
== END 2021-04-23 10:41 | disposition home or self-care (01) | DRG 271 ==
LOC: 2NO 13:28
PROVIDERS: ADMIT Internal Medicine Cardiovascular Disease; ATTEND Internal Medicine Cardiovascular Disease
PROC: 0W9D0ZZ Drainage of Pericardial Cavity, Open Approach (ICD-10-PCS; principal; 2021-04-21)
DX: I31.3 Pericardial effusion (noninflammatory) (principal); E87.1 Hypo-osmolality and hyponatremia; Z20.822 Contact with and (suspected) exposure to COVID-19; I48.91 Unspecified atrial fibrillation; I10 Essential (primary) hypertension; E78.00 Pure hypercholesterolemia, unspecified; E11.9 Type 2 diabetes mellitus without complications; Z87.891 Personal history of nicotine dependence; R16.0 Hepatomegaly, not elsewhere classified; R19.7 Diarrhea, unspecified; R55 Syncope and collapse; R00.1 Bradycardia, unspecified; Z95.0 Presence of cardiac pacemaker
CPT/HCPCS: 36415; 71045; 72193; 74170; 80048; 80162; 85025; 86850; 86900; 86901; 93005; 93010; J0171; J0690; J1100; J1885; J2405; J2704; J3010; Q9967; S0020; U0003; U0005

== ENCOUNTER 2021-05-17 15:51 | Outpatient (CLI) | payer MEDICARE | END 2021-05-17 15:52 | disposition home or self-care (01) | LOC: RAD 15:51 | PROVIDERS: ATTEND Internal Medicine Cardiovascular Disease | DX: Z48.812 Encounter for surgical aftercare following surgery on the circulatory system (principal); Z95.0 Presence of cardiac pacemaker; J98.11 Atelectasis; J90 Pleural effusion, not elsewhere classified | CPT/HCPCS: 71046 ==

== ENCOUNTER 2021-07-21 13:27 | Emergency (ER) | payer OTHER ==
[2021-07-21] MEDS ORDERED: HYDROcodone/Acetaminophen 10/325 mg Tablet ONE (14:40)
[2021-07-21 14:46] LABS: #Eosinphils 0.2 thou/uL (0.0-0.7); #Lymphocytes 1.2 thou/uL (1.20-3.40); #Monocytes 0.8 thou/uL (0.11-0.59); #Neutrophils 5.4 thou/uL (1.40-6.50); %Basophils 0.2 % (0.0-1.0); %Lymphocytes 16.2 % (21.0-51.0); %Monocytes 10.7 % (0.0-10.0); Hemoglobin 11.5 g/dL (14.0-18.0); Mean Corpuscular HGB CONC 33.2 g/dL (32.0-36.0); Mean Corpuscular Hemoglobin 27.5 pg (27.0-31.0); Mean Corpuscular Volume 82.9 fL (78.0-98.0); Mean Platelet Volume 8.1 fL (7.4-10.4); Platelet Count 156 thou/uL (130-400); RBC Distribution Width 16.5 % (11.5-14.5); Red Blood Cell (RBC) Count 4.16 mill/uL (4.70-6.10); White Blood Cell (WBC) Count 7.6 thou/uL (4.8-10.8)
[2021-07-21 15:13] LABS: ALT (SGPT) 24 U/L (8-55); AST (SGOT) 22 U/L (5-34); Albumin 3.8 g/dL (3.4-4.8); Alkaline Phosphatase 88 U/L (40-110); Anion Gap 12 mmol/L (10-20); BUN (Urea Nitrogen) 13 mg/dL (8.4-25.7); Bilirubin, Total 0.9 mg/dL (0.2-1.2); CK (CPK) 62 U/L (30-200); Calc. Creatinine Clearance 0 mL/min (70-130); Calcium 8.5 mg/dL (7.8-10.44); Carbon Dioxide 32 mmol/L (23-31); Chloride 93 mmol/L (98-107); Globulin 2.5 g/dL (2.4-3.5); Glucose 105 mg/dL (83-110); Lipase 15 U/L (8-78); Protein, Total 6.3 g/dL (5.8-8.1); Sodium 134 mmol/L (136-145)
[2021-07-21 15:29] LABS: CKMB 0.9 ng/mL (0-6.6)
== END 2021-07-21 15:52 | disposition home or self-care (01) ==
LOC: ERS 13:27
DX: S22.42XA Multiple fractures of ribs, left side, initial encounter for closed fracture (principal); I10 Essential (primary) hypertension; M10.9 Gout, unspecified; E11.9 Type 2 diabetes mellitus without complications; N40.0 Benign prostatic hyperplasia without lower urinary tract symptoms; Z87.891 Personal history of nicotine dependence; Z79.899 Other long term (current) drug therapy; Z79.82 Long term (current) use of aspirin; Z79.01 Long term (current) use of anticoagulants; Z79.84 Long term (current) use of oral hypoglycemic drugs; W19.XXXA Unspecified fall, initial encounter
CPT/HCPCS: 70450; 71250; 74177; 80053; 82550; 82553; 83690; 84484; 85025; 93005

== ENCOUNTER 2021-12-08 11:06 | Outpatient (CLI) | payer OTHER ==
[2021-12-08 12:39] LABS: #Eosinphils 0.1 10x3/uL (0.0-0.5); #Monocytes 0.5 10x3/uL (0.0-1.1); #Neutrophils 4.3 10x3/uL (1.5-8.4); %Basophils 0.6 % (0.0-2.0); %Eosinophils 1.7 % (0.0-6.0); %Lymphocytes 25.8 % (18.0-47.0); %Monocytes 6.9 % (0.0-10.0); %Neutrophils 64.4 % (40.0-75.0); Hemoglobin 11.8 g/dL (13.5-17.5); Mean Corpuscular HGB CONC 34.1 g/dL (32.0-36.0); Mean Corpuscular Hemoglobin 27.5 pg (27.0-33.0); Mean Corpuscular Volume 80.7 fl (81.2-95.1); Mean Platelet Volume 9.9 fl (7.4-10.4); Platelet Count 179 10x3/uL (150-450); RBC Distribution Width 13.9 % (11.5-14.5); Red Blood Cell (RBC) Count 4.29 10x6/uL (4.32-5.72); White Blood Cell (WBC) Count 6.6 10x3/uL (3.5-10.5)
[2021-12-08 12:59] LABS: ALT (SGPT) 14 U/L (8-55); AST (SGOT) 16 U/L (5-34); Albumin 4.1 g/dL (3.4-4.8); Alkaline Phosphatase 92 U/L (40-110); Anion Gap 12 mmol/L (10-20); BUN (Urea Nitrogen) 11 mg/dL (8.4-25.7); Bilirubin, Total 0.4 mg/dL (0.2-1.2); Calc. Creatinine Clearance 0 mL/min (70-130); Calcium 8.6 mg/dL (7.8-10.44); Carbon Dioxide 31 mmol/L (23-31); Chloride 98 mmol/L (98-107); Estimated GFR 53; Globulin 2.3 g/dL (2.4-3.5); Glucose 145 mg/dL (83-110); Potassium 3.5 mmol/L (3.5-5.1); Protein, Total 6.4 g/dL (5.8-8.1); Sodium 137 mmol/L (136-145)
== END 2021-12-08 11:07 | disposition home or self-care (01) ==
LOC: LABBT 11:06
PROVIDERS: ATTEND Internal Medicine Cardiovascular Disease
DX: Z01.818 Encounter for other preprocedural examination (principal); Z20.822 Contact with and (suspected) exposure to COVID-19
CPT/HCPCS: 80053; 85025; 87811; 93005; 93010

== ENCOUNTER 2022-10-25 18:11 | Emergency (ER) | payer OTHER ==
[2022-10-25 18:51] LABS: #Monocytes 0.4 thou/uL (0.11-0.59); #Neutrophils 3.5 thou/uL (1.40-6.50); %Basophils 0.6 % (0.0-1.0); %Eosinophils 0.8 % (0.0-10.0); %Lymphocytes 23.4 % (21.0-51.0); %Monocytes 7.1 % (0.0-10.0); %Neutrophils 66.4 % (42.0-75.0); Hematocrit 37.4 % (42.0-52.0); Hemoglobin 12.7 g/dL (14.0-18.0); Mean Corpuscular Hemoglobin 27.4 pg (27.0-31.0); Mean Corpuscular Volume 80.8 fl (78.0-98.0); Mean Platelet Volume 10.2 fL (7.4-10.4); Platelet Count 171 10x3/uL (130-400); RBC Distribution Width 14.6 % (11.5-14.5); Red Blood Cell (RBC) Count 4.63 mill/uL (4.70-6.10); White Blood Cell (WBC) Count 5.2 10x3/uL (4.8-10.8)
[2022-10-25 19:21] LABS: ALT (SGPT) 84 U/L (8-55); AST (SGOT) 41 U/L (5-34); Alkaline Phosphatase 137 U/L (40-110); Anion Gap 15 mmol/L (10-20); BUN (Urea Nitrogen) 16 mg/dL (8.4-25.7); Bilirubin, Total 0.5 mg/dL (0.2-1.2); Calc. Creatinine Clearance 0 mL/min (70-130); Carbon Dioxide 30 mmol/L (23-31); Chloride 97 mmol/L (98-107); Estimated GFR 42; Globulin 3.2 g/dL (2.4-3.5); Glucose 159 mg/dL (83-110); Potassium 3.5 mmol/L (3.5-5.1); Protein, Total 7.2 g/dL (5.8-8.1); Sodium 138 mmol/L (136-145)
== END 2022-10-25 20:45 | disposition home or self-care (01) ==
LOC: ERS 18:11
DX: R53.83 Other fatigue (principal); R53.81 Other malaise; E11.9 Type 2 diabetes mellitus without complications; I10 Essential (primary) hypertension; Z79.01 Long term (current) use of anticoagulants; Z79.84 Long term (current) use of oral hypoglycemic drugs; Z79.899 Other long term (current) drug therapy; Z79.891 Long term (current) use of opiate analgesic
CPT/HCPCS: 36416; 71045; 80053; 83605; 84484; 85025; 93005; 96360

== ENCOUNTER 2024-01-01 03:54 | Emergency (ER) | payer OTHER ==
[2024-01-01] MEDS ORDERED: Oxymetazoline HCl 0.05% (30 ML BOT) ONE (04:13)
== END 2024-01-01 06:24 | disposition home or self-care (01) ==
LOC: ERS 03:54
DX: H66.41 Suppurative otitis media, unspecified, right ear (principal); H60.11 Cellulitis of right external ear; R04.0 Epistaxis; I10 Essential (primary) hypertension; E11.9 Type 2 diabetes mellitus without complications; I25.2 Old myocardial infarction; Z79.01 Long term (current) use of anticoagulants; Z86.73 Personal history of transient ischemic attack (TIA), and cerebral infarction without residual deficits; Z95.0 Presence of cardiac pacemaker
CPT/HCPCS: 99282